=== PATIENT | male | born 1985 | race Caucasian/White ===

== ENCOUNTER 2018-01-15 15:50 | Emergency (ER) | payer MEDICAID ==
[~2018-01-15] VITALS: Ht 185.4 cm; Wt 95.0 kg
[2018-01-15] MEDS ORDERED: NITROGLYCERIN 2% OINT 1 GM PACKET TOP ONE (16:00)
[2018-01-15] MEDS ORDERED: SODIUM CHLORIDE 0.9% FLUSH 10 ML FLUSH IVF PRN (16:00)
[2018-01-15] MEDS ORDERED: SODIUM CHLORID 0.9% 500 ML INJ 500 ML IV ONE (16:00)
--- NOTE | 2018-01-15 16:06 | PD ---
HPI Chief Complaint: Chest Pain Time Seen by Provider: 15:58 Travel History International Travel<30 days: No Contact w/Intl Traveler<30days: No History of Present Illness HPI 32-year-old male presents emergency department via EMS with chest pain and tightness which resolved with 325 mg aspirin and 1 sublingual nitro. Patient has history of untreated hypertension, and recent increased stress due to some family issues. Patient states his pain was 3 out of 10 earlier when EMS arrived. Patient states he is now pain-free. He denies shortness of breath or chest tightness. Patient has no nausea or vomiting. No other acute symptoms are noted. Patient states he was written a prescription for atenolol 5 years ago, but never took it as it made him "tired". He has no known drug allergies. PFSH Past Medical History Cardiomyopathy: Yes (PT STATES 2 HEART ATTACKS) Diminished Hearing: No Immunizations Current: Yes Past Surgical History Other Surgery: Yes (TESTICLE REMOVAL ) Social History Alcohol Use: Yes Tobacco Use: Yes Substance Use: Yes (DENIES) Allergies-Medications (Allergen,Severity, Reaction): Coded Allergies: naproxen (Verified Allergy, Severe, Hives, 01/15/18) Reported Meds & Prescriptions Reported Meds & Active Scripts Active Active Prescriptions or Reported Medications Unobtainable Review of Systems Except as stated in HPI: all other systems reviewed are Neg General / Constitutional: No: Fever Eyes: No: Visual changes HENT: No: Headaches Cardiovascular: Positive: Chest Pain or Discomfort, No: Palpitations, Irregular Rhythm, Tachycardia, Diaphoresis, Syncope, Dyspnea on exertion, Varicosities, Edema, Varicosities, Phlebitis, Claudication Respiratory: No: Shortness of Breath Gastrointestinal: No: Abdominal Pain Genitourinary: No: Dysuria Musculoskeletal: No: Pain Skin: No Rash Neurologic: No: Weakness Psychiatric: No: Depression Endocrine: No: Polydipsia Hematologic/Lymphatic: No: Easy Bruising Physical Exam Narrative GENERAL: Patient appears somewhat anxious otherwise in no acute distress. SKIN: Warm and dry. Normal color. Normal turgor. No diaphoresis HEAD: Atraumatic. Normocephalic. EYES: Pupils equal and round. No scleral icterus. No injection or drainage. ENT: No nasal bleeding or discharge. Mucous membranes pink and moist. Pharynx is clear. Airways patent NECK: Trachea midline. Supple and nontender. No JVD. CARDIOVASCULAR: Regular rate and rhythm. No murmurs gallops or rubs. RESPIRATORY: No accessory muscle use. Clear to auscultation. Breath sounds equal bilaterally. GASTROINTESTINAL: Abdomen soft, non-tender, nondistended. Hepatic and splenic margins not palpable. MUSCULOSKELETAL: Extremities without clubbing, cyanosis, or edema. No obvious deformities. NEUROLOGICAL: Awake and alert. No obvious cranial nerve deficits. Motor grossly within normal limits. Five out of 5 muscle strength in the arms and legs. Normal speech. PSYCHIATRIC: Appropriate mood and affect; insight and judgment normal. Data Data Last Documented VS Vital Signs Date Time Temp Pulse Resp B/P (MAP) Pulse Ox O2 Delivery O2 Flow Rate FiO2 01/15/18 17:31 73 17 143/83 (103) 99 Room Air 01/15/18 16:18 2.00 01/15/18 16:15 98.4 Orders Orders Electrocardiogram (01/15/18 15:59) Ckmb (Isoenzyme) Profile (01/15/18 15:59) Complete Blood Count With Diff (01/15/18 15:59) Comprehensive Metabolic Panel (01/15/18 15:59) Magnesium (Mg) (01/15/18 15:59) Prothrombin Time / Inr (Pt) (01/15/18 15:59) Act Partial Throm Time (Ptt) (01/15/18 15:59) Troponin I (01/15/18 15:59) Chest, Single Ap (01/15/18 15:59) Ecg Monitoring (01/15/18 15:59) Bilateral Bp Monitoring (01/15/18 15:59) Iv Access Insert/Monitor (01/15/18 15:59) Oximetry (01/15/18 15:59) Oxygen Administration (01/15/18 15:59) Nitroglycerin 2% Oint (Nitroglycerin 2% (01/15/18 16:00) Sodium Chloride 0.9% Flush (Ns Flush) (01/15/18 16:00) Metoprolol Tartrate Inj (Lopressor Inj) (01/15/18 16:00) Sodium Chlorid 0.9% 500 Ml Inj (Ns 500 M (01/15/18 16:00) Urinalysis - C+S If Indicated (01/15/18 15:59) Drug Screen, Random Urine (01/15/18 15:59) Alcohol (Ethanol) (01/15/18 15:59) CKMB (01/15/18 16:35) CKMB% (01/15/18 16:35) Activity Bed Rest With Brp (01/15/18 17:38) Vital Signs (Adult) Q4H (01/15/18 17:38) Cardiac Rhythm .As Directed (01/15/18 17:38) Notify Dr: Other .PRN (01/15/18 17:38) Notify DrMing Parameters (01/15/18 17:38) Resp Oxygen Nasal Cannula (01/15/18 ) Ckmb (Isoenzyme) Profile (01/15/18 19:35) Ckmb (Isoenzyme) Profile (01/15/18 22:35) Troponin I (01/15/18 19:35) Troponin I (01/15/18 22:35) Electrocardiogram (01/15/18 17:38) Electrocardiogram (01/15/18 20:38) ^ Obtain (01/15/18 17:38) Sodium Chloride 0.9% Flush (Ns Flush) (01/15/18 17:45) Sodium Chloride 0.9% Flush (Ns Flush) (01/15/18 21:00) Metoprolol Tartrate (Lopressor) (01/15/18 17:45) Nitroglycerin 2% Oint (Nitroglycerin 2% (01/15/18 18:00) Aspirin (Aspirin) (01/16/18 09:00) Geodetic Surveyor Technologist / Telemetry [email or web address] (01/15/18 17:38) Admit Order (Ed Use Only) (01/15/18 17:42) Labs Laboratory Tests Test 01/15/18 16:35 White Blood Count 8.0 TH/MM3 Red Blood Count 4.96 MIL/MM3 Hemoglobin 15.6 GM/DL Hematocrit 45.7 % Mean Corpuscular Volume 92.1 FL Mean Corpuscular Hemoglobin 31.4 PG Mean Corpuscular Hemoglobin Concent 34.1 % Red Cell Distribution Width 13.5 % Platelet Count 264 TH/MM3 Mean Platelet Volume 8.0 FL Neutrophils (%) (Auto) 68.7 % Lymphocytes (%) (Auto) 21.5 % Monocytes (%) (Auto) 8.7 % Eosinophils (%) (Auto) 0.6 % Basophils (%) (Auto) 0.5 % Neutrophils # (Auto) 5.5 TH/MM3 Lymphocytes # (Auto) 1.7 TH/MM3 Monocytes # (Auto) 0.7 TH/MM3 Eosinophils # (Auto) 0.0 TH/MM3 Basophils # (Auto) 0.0 TH/MM3 CBC Comment DIFF FINAL Differential Comment Prothrombin Time 10.7 SEC Prothromb Time International Ratio 1.1 RATIO Activated Partial Thromboplast Time 30.1 SEC Blood Urea Nitrogen 15 MG/DL Creatinine 1.01 MG/DL Random Glucose 84 MG/DL Total Protein 8.2 GM/DL Albumin 4.3 GM/DL Calcium Level 9.1 MG/DL Magnesium Level 2.3 MG/DL Alkaline Phosphatase 95 U/L Aspartate Amino Transf (AST/SGOT) 26 U/L Alanine Aminotransferase (ALT/SGPT) 34 U/L Total Bilirubin 0.5 MG/DL Sodium Level 138 MEQ/L Potassium Level 3.8 MEQ/L Chloride Level 106 MEQ/L Carbon Dioxide Level 20.7 MEQ/L Anion Gap 11 MEQ/L Estimat Glomerular Filtration Rate 85 ML/MIN Total Creatine Kinase 256 U/L Creatine Kinase MB 1.1 NG/ML Troponin I LESS THAN 0.02 NG/ML Ethyl Alcohol Level LESS THAN 3 MG/DL MDM Medical Decision Making Medical Screen Exam Complete: Yes Emergency Medical Condition: Yes Differential Diagnosis Atypical chest pain. Cardiac syndrome. Unstable angina. Anxiety. Esophageal spasm Narrative Course Patient appears medically stable at time of exam. EKG is ordered. Chest x-ray is ordered. Labs ordered including CBC, CMP, cardiac panel, urinalysis, urine drug screen, and serum alcohol level. IV is obtained and the patient is given 5 mg metoprolol 3 per protocol. 1 inch nitroglycerin paste is placed topically. EKG shows possible right ventricular conduction delay, and possible left ventricular hypertrophy based on voltage criteria. EKG is reviewed by Dr. Dudley. Chest x-ray shows no acute cardiopulmonary process. CBC is unremarkable. Coagulation study shows a PT of 10.7, INR 1.1. CMP unremarkable except for GFR 85, carbon dioxide is 20.7, first troponin is less than 0.02. Serum alcohol is less than 3. Urinalysis and urine tox screen is pending. Patient admitted to the chest pain center for further evaluation and treatment and possible stress test. Diagnosis Primary Impression: Chest pain Qualified Codes: R07.2 - Precordial pain Admitting Information Admitting Physician Requests: Observation Scripts Unable to Obtain Active Prescriptions or Reported Meds Condition: Stable Emerson Patel Jan 15, 2018 16:06
[2018-01-15 16:15] VITALS: BP 152/98; PULSE 89; RESP 18; TEMP 98.4; O2SAT 99
[2018-01-15 16:23] VITALS: BP_SYST 154; BP_SYST 159; BP_DIAS 100; BP_DIAS 106; PULSE 80; RESP 17; O2SAT 100
--- NOTE | 2018-01-15 16:26 | RADRPT ---
EXAM DATE: 01/15/2018 4:14 PM EDT AGE/SEX: 32 years / Male INDICATIONS: Chest pain today. CLINICAL DATA: This is the patient's initial encounter. Patient reports that signs and symptoms have been present for 1 day and indicates a pain score of 7/10. MEDICAL/SURGICAL HISTORY: . Myocardial infarction. None. COMPARISON: No prior exams available for comparison. FINDINGS: A single AP view of the chest demonstrates the lungs to be symmetrically aerated without evidence of mass, infiltrate or effusion. The cardiomediastinal contours are unremarkable. Osseous structures a re intact. CONCLUSION: No acute cardiopulmonary process. Electronically signed by: Prudencio Shelton MD 01/15/2018 4:25 PM EDT
[2018-01-15] MEDS: METOPROLOL TARTRATE 5 MG/5 ML VIAL IVS SCH ×3 (16:31→17:58)
[2018-01-15 17:01] LABS: AUTOMATED NEUTROPHIL # 5.5 TH/MM3 (1.8-7.7); BASOPHIL % 0.5 % (0.0-2.0); EOSINOPHIL % 0.6 % (0.0-4.0); HEMATOCRIT 45.7 % (39.0-51.0); HEMOGLOBIN 15.6 GM/DL (13.0-17.0); LYMPH % 21.5 % (9.0-44.0); LYMPHOCYTE # 1.7 TH/MM3 (1.0-4.8); MEAN CELL VOLUME 92.1 FL (80.0-100.0); MEAN CORPUSCULAR HEMOGLOBIN 31.4 PG (27.0-34.0); MEAN CORPUSCULAR HGB CONC 34.1 % (32.0-36.0); MONO % 8.7 % (0.0-8.0); MONOCYTE # 0.7 TH/MM3 (0-0.9); NEUT % 68.7 % (16.0-70.0); PLATELET COUNT 264 TH/MM3 (150-450); RED BLOOD COUNT 4.96 MIL/MM3 (4.50-5.90); RED CELL DISTRIBUTION WIDTH 13.5 % (11.6-17.2)
[2018-01-15 17:11] LABS: INTERNATIONAL NORMALIZED RATIO 1.1 RATIO; PROTHROMBIN TIME - PATIENT 10.7 SEC (9.8-11.6)
[2018-01-15 17:23] LABS: ALT (GPT) 34 U/L (12-78)
[2018-01-15 17:26] LABS: ALKALINE PHOSPHATASE 95 U/L (45-117); TOTAL BILIRUBIN ADULT 0.5 MG/DL (0.2-1.0); TOTAL PROTEIN 8.2 GM/DL (6.4-8.2); TROPONIN I LESS THAN 0.02 NG/ML (0.02-0.05)
[2018-01-15 17:29] LABS: ALBUMIN 4.3 GM/DL (3.4-5.0); AST (GOT) 26 U/L (15-37); BICARBONATE 20.7 MEQ/L (21.0-32.0); BLOOD UREA NITROGEN 15 MG/DL (7-18); CALCIUM 9.1 MG/DL (8.5-10.1); CHLORIDE 106 MEQ/L (98-107); CREATININE 1.01 MG/DL (0.60-1.30); GLOMERULAR FILTRATION RATE 85 ML/MIN (>89); GLUCOSE,RANDOM 84 MG/DL (74-106); MAGNESIUM 2.3 MG/DL (1.5-2.5); SODIUM (NA) 138 MEQ/L (136-145)
[2018-01-15 17:31] VITALS: BP 143/83; PULSE 73; RESP 17; O2SAT 99
[2018-01-15] MEDS ORDERED: METOPROLOL TARTRATE 25 MG TAB PO SCH (17:45)
[2018-01-15] MEDS ORDERED: SODIUM CHLORIDE 0.9% FLUSH 10 ML FLUSH IV FLUSH PRN (17:45)
[2018-01-15 18:00] VITALS: BP 152/95; PULSE 63; RESP 18; O2SAT 100
[2018-01-15] MEDS ORDERED: NITROGLYCERIN 2% OINT 1 GM PACKET TOP SCH (18:00)
[2018-01-15 18:14] VITALS: BP 146/88; PULSE 66; RESP 11; O2SAT 100
--- NOTE | 2018-01-15 18:19 | PD ---
Physical Exam Date Seen by Provider: Jan 15, 2018 Time Seen by Provider: 18:18 Narrative 32-year-old male previously admitted to the chest pain center after having chest discomfort and beginning of his workup, requesting to leave AMA. Data Data Last Documented VS Vital Signs Date Time Temp Pulse Resp B/P (MAP) Pulse Ox O2 Delivery O2 Flow Rate FiO2 01/15/18 17:31 73 17 143/83 (103) 99 Room Air 01/15/18 16:18 2.00 01/15/18 16:15 98.4 Orders Orders Electrocardiogram (01/15/18 15:59) Ckmb (Isoenzyme) Profile (01/15/18 15:59) Complete Blood Count With Diff (01/15/18 15:59) Comprehensive Metabolic Panel (01/15/18 15:59) Magnesium (Mg) (01/15/18 15:59) Prothrombin Time / Inr (Pt) (01/15/18 15:59) Act Partial Throm Time (Ptt) (01/15/18 15:59) Troponin I (01/15/18 15:59) Chest, Single Ap (01/15/18 15:59) Ecg Monitoring (01/15/18 15:59) Bilateral Bp Monitoring (01/15/18 15:59) Iv Access Insert/Monitor (01/15/18 15:59) Oximetry (01/15/18 15:59) Oxygen Administration (01/15/18 15:59) Nitroglycerin 2% Oint (Nitroglycerin 2% (01/15/18 16:00) Sodium Chloride 0.9% Flush (Ns Flush) (01/15/18 16:00) Metoprolol Tartrate Inj (Lopressor Inj) (01/15/18 16:00) Sodium Chlorid 0.9% 500 Ml Inj (Ns 500 M (01/15/18 16:00) Urinalysis - C+S If Indicated (01/15/18 15:59) Drug Screen, Random Urine (01/15/18 15:59) Alcohol (Ethanol) (01/15/18 15:59) CKMB (01/15/18 16:35) CKMB% (01/15/18 16:35) Activity Bed Rest With Brp (01/15/18 17:38) Vital Signs (Adult) Q4H (01/15/18 17:38) Cardiac Rhythm .As Directed (01/15/18 17:38) Notify Dr: Other .PRN (01/15/18 17:38) Notify DrMing Parameters (01/15/18 17:38) Resp Oxygen Nasal Cannula (01/15/18 ) Ckmb (Isoenzyme) Profile (01/15/18 19:35) Ckmb (Isoenzyme) Profile (01/15/18 22:35) Troponin I (01/15/18 19:35) Troponin I (01/15/18 22:35) Electrocardiogram (01/15/18 17:38) Electrocardiogram (01/15/18 20:38) ^ Obtain (01/15/18 17:38) Sodium Chloride 0.9% Flush (Ns Flush) (01/15/18 17:45) Sodium Chloride 0.9% Flush (Ns Flush) (01/15/18 21:00) Metoprolol Tartrate (Lopressor) (01/15/18 17:45) Nitroglycerin 2% Oint (Nitroglycerin 2% (01/15/18 18:00) Aspirin (Aspirin) (01/16/18 09:00) Brand Mgr / Telemetry [email or web address] (01/15/18 17:38) Admit Order (Ed Use Only) (01/15/18 17:42) Labs Laboratory Tests Test 01/15/18 16:35 White Blood Count 8.0 TH/MM3 Red Blood Count 4.96 MIL/MM3 Hemoglobin 15.6 GM/DL Hematocrit 45.7 % Mean Corpuscular Volume 92.1 FL Mean Corpuscular Hemoglobin 31.4 PG Mean Corpuscular Hemoglobin Concent 34.1 % Red Cell Distribution Width 13.5 % Platelet Count 264 TH/MM3 Mean Platelet Volume 8.0 FL Neutrophils (%) (Auto) 68.7 % Lymphocytes (%) (Auto) 21.5 % Monocytes (%) (Auto) 8.7 % Eosinophils (%) (Auto) 0.6 % Basophils (%) (Auto) 0.5 % Neutrophils # (Auto) 5.5 TH/MM3 Lymphocytes # (Auto) 1.7 TH/MM3 Monocytes # (Auto) 0.7 TH/MM3 Eosinophils # (Auto) 0.0 TH/MM3 Basophils # (Auto) 0.0 TH/MM3 CBC Comment DIFF FINAL Differential Comment Prothrombin Time 10.7 SEC Prothromb Time International Ratio 1.1 RATIO Activated Partial Thromboplast Time 30.1 SEC Blood Urea Nitrogen 15 MG/DL Creatinine 1.01 MG/DL Random Glucose 84 MG/DL Total Protein 8.2 GM/DL Albumin 4.3 GM/DL Calcium Level 9.1 MG/DL Magnesium Level 2.3 MG/DL Alkaline Phosphatase 95 U/L Aspartate Amino Transf (AST/SGOT) 26 U/L Alanine Aminotransferase (ALT/SGPT) 34 U/L Total Bilirubin 0.5 MG/DL Sodium Level 138 MEQ/L Potassium Level 3.8 MEQ/L Chloride Level 106 MEQ/L Carbon Dioxide Level 20.7 MEQ/L Anion Gap 11 MEQ/L Estimat Glomerular Filtration Rate 85 ML/MIN Total Creatine Kinase 256 U/L Creatine Kinase MB 1.1 NG/ML Troponin I LESS THAN 0.02 NG/ML Ethyl Alcohol Level LESS THAN 3 MG/DL MDM Medical Record Reviewed: Yes Supervised Visit with QING: Yes Narrative Course The risks of leaving now was explained to the patient, and the recommendation to stay for further evaluation and treatment to the chest pain center was reviewed. Patient requests leave AMA with outpatient follow-up for his discretion. AMA form was prepared and signed with nursing as witness. Diagnosis Primary Impression: Chest pain Qualified Codes: R07.2 - Precordial pain Additional Impression: Left against medical advice Scripts Unable to Obtain Active Prescriptions or Reported Meds Disposition: 07 AGAINST MEDICAL ADVICE Condition: Stable Emerson Patel Jan 15, 2018 18:19
[2018-01-15] MEDS ORDERED: SODIUM CHLORIDE 0.9% FLUSH 10 ML FLUSH IV FLUSH SCH (21:00)
--- NOTE | 2018-01-16 08:07 | EKG ---
Date Performed: 01/15/2018 Time Performed: 16:11:21 PTAGE: 32 years EKG: Sinus rhythm POSSIBLE RIGHT VENTRICULAR CONDUCTION DELAY POSSIBLE LEFT VENTRICULAR HYPERTROPHY ABNORMAL ECG PREVIOUS TRACING : 09/02/2013 04.47 Since previous tracing, no significant change noted DOCTOR: Kendell Evans Interpretating Date/Time 01/16/2018 08:07:13
[2018-01-16] MEDS ORDERED: ASPIRIN 325 MG TAB PO SCH (09:00)
[2018-01-17 06:35] VITALS: O2SAT 96
== END 2018-01-15 18:23 | disposition left against medical advice (07) ==
LOC: NEPC 15:50 → UNDOADMOB 17:43 → NEDA 17:43
DX: R07.9 Chest pain, unspecified (principal); I10 Essential (primary) hypertension; Z72.0 Tobacco use; Z88.8 Allergy status to other drugs, medicaments and biological substances
CPT/HCPCS: 71045; 80053; 80307; 82550; 82552; 83735; 84484; 85025; 85610; 85730; 93005; 96361; 96374; 99284; J7040

== ENCOUNTER 2018-01-19 12:48 | Emergency (ER) | payer MEDICAID ==
[~2018-01-19] VITALS: Ht 185.4 cm; Wt 91.0 kg
[2018-01-19 13:02] VITALS: BP 183/96; PULSE 106; PULSE 85; RESP 16; RESP 23; TEMP 97.8; O2SAT 98
--- NOTE | 2018-01-19 13:13 | PD ---
HPI Chief Complaint: Cardiac Complaint Time Seen by Provider: 12:56 Travel History International Travel<30 days: No Contact w/Intl Traveler<30days: No Traveled to known affect area: No History of Present Illness HPI The patient is a 32-year-old male who presents to the emergency department via EMS for chest pain. The patient notes an intermittent history of chest pain since which is substernal to left-sided, sometimes described as pressure over the sternal area and occasionally as "pins and needles "over the left aspect of the chest. The patient states the chest pain is intermittent, will last several minutes, may be related to stress. The patient states he is under stress because he recently found out his 15-year-old daughter is dating a 28-year-old man. The patient contacted the police, however , they state they are unable to do anything unless the individual is actually with his daughter. The patient states his stress has been making his symptoms worse. He does note a history of hypertension and tobacco use, denies any known history of hyperlipidemia, diabetes, or coronary artery disease. The patient states she was adopted and does not know his family medical history. He denies any exertional symptoms, shortness of breath, nausea, vomiting, diaphoresis, or change in cough. He does have a chronic dry nonproductive cough. The patient denies any history of pulmonary embolism, DVT, recent hospitalizations, recent surgeries, or recent prolonged travel. PFSH Past Medical History Anxiety: Yes Cardiomyopathy: Yes (PT STATES 2 HEART ATTACKS) Cardiovascular Problems: Yes (chest pain , HTN ) Diminished Hearing: No Hypertension: Yes Immunizations Current: Yes Past Surgical History Other Surgery: Yes (TESTICLE REMOVAL ) Social History Alcohol Use: Yes (12 pack a week ) Tobacco Use: Yes (1 pack and a half ) Substance Use: Yes (pot ) Allergies-Medications (Allergen,Severity, Reaction): Coded Allergies: naproxen (Verified Allergy, Severe, Hives, 01/19/18) Reported Meds & Prescriptions Reported Meds & Active Scripts Active No Active Prescriptions or Reported Medications Review of Systems Except as stated in HPI: all other systems reviewed are Neg General / Constitutional: No: Fever HENT: No: Lightheadedness Cardiovascular: Positive: Chest Pain or Discomfort, No: Palpitations, Irregular Rhythm, Diaphoresis, Dyspnea on exertion Respiratory: No: Shortness of Breath Gastrointestinal: No: Nausea, Vomiting, Abdominal Pain Psychiatric: Positive: Anxiety Physical Exam Narrative GENERAL: Awake, alert, pleasant 32-year-old male who appears his stated age and is in no acute respiratory distress. SKIN: Focused skin assessment warm/dry. HEAD: Atraumatic. Normocephalic. EYES: Pupils equal and round. No injection or drainage. ENT: No nasal bleeding or discharge. Mucous membranes pink and moist. NECK: Trachea midline. No JVD. CARDIOVASCULAR: Regular, tachycardic with a heart rate 110. RESPIRATORY: No accessory muscle use. Clear to auscultation. Breath sounds equal bilaterally. GASTROINTESTINAL: Abdomen soft, non-tender, nondistended. MUSCULOSKELETAL: No obvious deformities. No clubbing. No cyanosis. No edema. NEUROLOGICAL: Awake and alert. No obvious cranial nerve deficits. Motor grossly within normal limits. Normal speech. Nonfocal. PSYCHIATRIC: Slightly anxious. Data Data Last Documented VS Vital Signs Date Time Temp Pulse Resp B/P (MAP) Pulse Ox O2 Delivery O2 Flow Rate FiO2 01/19/18 13:20 Room Air 01/19/18 13:14 88 25 166/88 (114) 97 01/19/18 13:02 97.8 01/19/18 13:00 2.00 Orders Orders Electrocardiogram (01/19/18 13:05) Ckmb (Isoenzyme) Profile (01/19/18 13:05) Complete Blood Count With Diff (01/19/18 13:05) Comprehensive Metabolic Panel (01/19/18 13:05) D-Dimer (01/19/18 13:05) Magnesium (Mg) (01/19/18 13:05) Prothrombin Time / Inr (Pt) (01/19/18 13:05) Act Partial Throm Time (Ptt) (01/19/18 13:05) Troponin I (01/19/18 13:05) Lipase (01/19/18 13:05) Ecg Monitoring (01/19/18 13:05) Bilateral Bp Monitoring (01/19/18 13:05) Iv Access Insert/Monitor (01/19/18 13:05) Oximetry (01/19/18 13:05) Oxygen Administration (01/19/18 13:05) Aspirin Chew (Aspirin Chew) (01/19/18 13:15) Morphine Inj (Morphine Inj) (6/25/18 13:15) Sodium Chloride 0.9% Flush (Ns Flush) (01/19/18 13:15) Sodium Chlorid 0.9% 500 Ml Inj (Ns 500 M (01/19/18 13:15) Chest, Pa & Lat (01/19/18 13:05) Ondansetron Odt (Zofran Odt) (01/19/18 13:15) CKMB (01/19/18 13:10) CKMB% (01/19/18 13:10) Troponin I (01/19/18 16:10) Labs Laboratory Tests Test 01/19/18 13:10 01/19/18 15:15 White Blood Count 7.9 TH/MM3 Red Blood Count 4.70 MIL/MM3 Hemoglobin 15.0 GM/DL Hematocrit 44.2 % Mean Corpuscular Volume 93.9 FL Mean Corpuscular Hemoglobin 31.9 PG Mean Corpuscular Hemoglobin Concent 34.0 % Red Cell Distribution Width 13.4 % Platelet Count 252 TH/MM3 Mean Platelet Volume 7.9 FL Neutrophils (%) (Auto) 68.1 % Lymphocytes (%) (Auto) 24.4 % Monocytes (%) (Auto) 6.2 % Eosinophils (%) (Auto) 0.8 % Basophils (%) (Auto) 0.5 % Neutrophils # (Auto) 5.4 TH/MM3 Lymphocytes # (Auto) 1.9 TH/MM3 Monocytes # (Auto) 0.5 TH/MM3 Eosinophils # (Auto) 0.1 TH/MM3 Basophils # (Auto) 0.0 TH/MM3 CBC Comment DIFF FINAL Differential Comment Prothrombin Time 10.3 SEC Prothromb Time International Ratio 1.0 RATIO Activated Partial Thromboplast Time 28.9 SEC D-Dimer Quantitative (PE/DVT) LESS THAN 0.19 MG/L FEU Blood Urea Nitrogen 16 MG/DL Creatinine 0.98 MG/DL Random Glucose 101 MG/DL Total Protein 7.4 GM/DL Albumin 4.2 GM/DL Calcium Level 8.2 MG/DL Magnesium Level 2.3 MG/DL Alkaline Phosphatase 87 U/L Aspartate Amino Transf (AST/SGOT) 21 U/L Alanine Aminotransferase (ALT/SGPT) 29 U/L Total Bilirubin 0.3 MG/DL Sodium Level 137 MEQ/L Potassium Level 3.6 MEQ/L Chloride Level 105 MEQ/L Carbon Dioxide Level 24.6 MEQ/L Anion Gap 7 MEQ/L Estimat Glomerular Filtration Rate 88 ML/MIN Total Creatine Kinase 163 U/L Creatine Kinase MB 1.2 NG/ML Troponin I LESS THAN 0.02 NG/ML LESS THAN 0.02 NG/ML Lipase 94 U/L MDM Medical Decision Making Medical Screen Exam Complete: Yes Emergency Medical Condition: Yes Medical Record Reviewed: Yes Interpretation(s) EKG reveals normal sinus rhythm with a rate 84. Left ventricular hypertrophy by voltage criteria. J-point elevation V2 and V3. Last Impressions Chest X-Ray 01/19/18 1305 Signed Impressions: CONCLUSION: Negative for acute disease Laboratory Tests Test 01/19/18 13:10 01/19/18 15:15 White Blood Count 7.9 TH/MM3 Red Blood Count 4.70 MIL/MM3 Hemoglobin 15.0 GM/DL Hematocrit 44.2 % Mean Corpuscular Volume 93.9 FL Mean Corpuscular Hemoglobin 31.9 PG Mean Corpuscular Hemoglobin Concent 34.0 % Red Cell Distribution Width 13.4 % Platelet Count 252 TH/MM3 Mean Platelet Volume 7.9 FL Neutrophils (%) (Auto) 68.1 % Lymphocytes (%) (Auto) 24.4 % Monocytes (%) (Auto) 6.2 % Eosinophils (%) (Auto) 0.8 % Basophils (%) (Auto) 0.5 % Neutrophils # (Auto) 5.4 TH/MM3 Lymphocytes # (Auto) 1.9 TH/MM3 Monocytes # (Auto) 0.5 TH/MM3 Eosinophils # (Auto) 0.1 TH/MM3 Basophils # (Auto) 0.0 TH/MM3 CBC Comment DIFF FINAL Differential Comment Prothrombin Time 10.3 SEC Prothromb Time International Ratio 1.0 RATIO Activated Partial Thromboplast Time 28.9 SEC D-Dimer Quantitative (PE/DVT) LESS THAN 0.19 MG/L FEU Blood Urea Nitrogen 16 MG/DL Creatinine 0.98 MG/DL Random Glucose 101 MG/DL Total Protein 7.4 GM/DL Albumin 4.2 GM/DL Calcium Level 8.2 MG/DL Magnesium Level 2.3 MG/DL Alkaline Phosphatase 87 U/L Aspartate Amino Transf (AST/SGOT) 21 U/L Alanine Aminotransferase (ALT/SGPT) 29 U/L Total Bilirubin 0.3 MG/DL Sodium Level 137 MEQ/L Potassium Level 3.6 MEQ/L Chloride Level 105 MEQ/L Carbon Dioxide Level 24.6 MEQ/L Anion Gap 7 MEQ/L Estimat Glomerular Filtration Rate 88 ML/MIN Total Creatine Kinase 163 U/L Creatine Kinase MB 1.2 NG/ML Troponin I LESS THAN 0.02 NG/ML LESS THAN 0.02 NG/ML Lipase 94 U/L Differential Diagnosis Differential diagnosis includes acute coronary syndrome, STEMI, hypertensive urgency, hypertensive emergency, anxiety, somatization, GERD, esophageal spasm, pneumomediastinum, bronchitis. Narrative Course IV was established, labs are drawn and sent, and the patient was placed on cardiac telemetry monitoring and continuous pulse oximetry monitoring. EKG was ordered and interpreted. Chest x-ray is obtained. The patient received aspirin 162 mg orally, morphine, Zofran, and IV fluids. Patient was tachycardic , could not rule out with PERC, therefore, d-dimer was sent to lab. D-dimer is less than 0.19, therefore, no indication for CT pulmonary angiogram. Chest x- ray is unremarkable. The patient's second troponin is less than 0.02. Patient has 2 troponins less than 0.02 with atypical symptoms, he is stable for outpatient follow-up. He is advised to take a baby aspirin daily. Diagnosis Primary Impression: Atypical chest pain Patient Instructions: General Instructions Additional Instructions: Take a baby aspirin daily. Please provide the patient a copy of his lab results and x-ray results at discharge. Follow-up with your primary physician. Return if symptoms worsen or progress. Med/Other Pt SpecificInfo: Other (Take a baby aspirin daily) Scripts No Active Prescriptions or Reported Meds Disposition: 01 DISCHARGE HOME Condition: Stable Eduard Singh MD Jan 19, 2018 13:13
[2018-01-19 13:14] VITALS: BP 166/88; PULSE 88; RESP 25; O2SAT 97
[2018-01-19] MEDS ORDERED: MORPHINE SULFATE 4 MG/ML INJ IV PUSH ONE (13:15)
[2018-01-19] MEDS ORDERED: ASPIRIN 81 MG CHEW TAB PO ONE (13:15)
[2018-01-19] MEDS ORDERED: SODIUM CHLORID 0.9% 500 ML INJ 500 ML IV ONE (13:15)
[2018-01-19] MEDS ORDERED: ONDANSETRON ODT 4 MG TAB PO ONE (13:15)
[2018-01-19] MEDS ORDERED: SODIUM CHLORIDE 0.9% FLUSH 10 ML FLUSH IVF PRN (13:15)
[2018-01-19 13:32] LABS: AUTOMATED NEUTROPHIL # 5.4 TH/MM3 (1.8-7.7); BASOPHIL % 0.5 % (0.0-2.0); EOSINOPHIL # 0.1 TH/MM3 (0-0.4); EOSINOPHIL % 0.8 % (0.0-4.0); HEMATOCRIT 44.2 % (39.0-51.0); LYMPH % 24.4 % (9.0-44.0); LYMPHOCYTE # 1.9 TH/MM3 (1.0-4.8); MEAN CELL VOLUME 93.9 FL (80.0-100.0); MEAN CORPUSCULAR HEMOGLOBIN 31.9 PG (27.0-34.0); MEAN PLATELET VOLUME 7.9 FL (7.0-11.0); MONO % 6.2 % (0.0-8.0); MONOCYTE # 0.5 TH/MM3 (0-0.9); NEUT % 68.1 % (16.0-70.0); PLATELET COUNT 252 TH/MM3 (150-450); RED CELL DISTRIBUTION WIDTH 13.4 % (11.6-17.2); WHITE BLOOD COUNT 7.9 TH/MM3 (4.0-11.0)
[2018-01-19 13:50] LABS: PROTHROMBIN TIME - PATIENT 10.3 SEC (9.8-11.6)
[2018-01-19 13:57] LABS: D-DIMER LESS THAN 0.19 MG/L FEU (0.00-0.50)
--- NOTE | 2018-01-19 14:01 | RADRPT ---
EXAM DATE: 01/19/2018 1:35 PM EDT AGE/SEX: 32 years / Male INDICATIONS: Chest pain. CLINICAL DATA: This is the patient's initial encounter. Patient reports that signs and symptoms have been present for 1 week and indicates a pain score of 7/10. MEDICAL/SURGICAL HISTORY: Hypertension. None. COMPARISON: No prior exams available for comparison. FINDINGS: PA and lateral views of the chest demonstrate the lungs to be symmetrically aerated without evidence of mass, infiltrate or effusion. The cardiomediastinal contours are unremarkable. Osseous structures are intact. CONCLUSION: Negative for acute disease Electronically signed by: Amrit Prado MD 01/19/2018 2:00 PM EDT
[2018-01-19 14:17] LABS: ALBUMIN 4.2 GM/DL (3.4-5.0); ALT (GPT) 29 U/L (12-78); AST (GOT) 21 U/L (15-37); BICARBONATE 24.6 MEQ/L (21.0-32.0); BLOOD UREA NITROGEN 16 MG/DL (7-18); CALCIUM 8.2 MG/DL (8.5-10.1); CHLORIDE 105 MEQ/L (98-107); CREATININE 0.98 MG/DL (0.60-1.30); GLOMERULAR FILTRATION RATE 88 ML/MIN (>89); GLUCOSE,RANDOM 101 MG/DL (74-106); MAGNESIUM 2.3 MG/DL (1.5-2.5); SODIUM (NA) 137 MEQ/L (136-145)
[2018-01-19 14:22] LABS: ALKALINE PHOSPHATASE 87 U/L (45-117); TOTAL BILIRUBIN ADULT 0.3 MG/DL (0.2-1.0); TOTAL PROTEIN 7.4 GM/DL (6.4-8.2); TROPONIN I LESS THAN 0.02 NG/ML (0.02-0.05)
--- NOTE | 2018-01-19 15:14 | EKG ---
Date Performed: 01/19/2018 Time Performed: 13:06:39 PTAGE: 32 years EKG: Sinus rhythm POSSIBLE LEFT VENTRICULAR HYPERTROPHY ABNORMAL ECG No significant change from prior electrocardiogra m. PREVIOUS TRACING : 01/15/2018 16.11 DOCTOR: Woody Malloy Interpretating Date/Time 01/19/2018 15:13:04
== END 2018-01-19 16:53 | disposition home or self-care (01) ==
LOC: NEPC 12:48
DX: R07.89 Other chest pain (principal); R05 Cough; R94.31 Abnormal electrocardiogram [ECG] [EKG]; F17.200 Nicotine dependence, unspecified, uncomplicated
CPT/HCPCS: 71046; 80053; 82550; 82552; 83690; 83735; 84484; 85025; 85379; 85610; 85730; 93005; 96374; 99285; J2270; J7040